=== PATIENT | female | born 1990 | race Two or more races ===

== ENCOUNTER 2019-12-31 05:55 | Day surgery (SDC) | payer BC ==
[~2019-12-31 05:55] MED LIST: PRENATAL TABLE1 EAC1 PO; PRENATE ELITE1 EAC2
[2019-12-31] MEDS ORDERED: ULTRAM50 MG PO (09:17)
[2019-12-31] MEDS ORDERED: TYLENOL ARTHRI650 MG PO (09:17)
[2019-12-31] MEDS ORDERED: NEURONTIN300 MG PO (09:17)
[2019-12-31] MEDS ORDERED: MIRALAX17 GM PO (09:17)
== END 2019-12-31 12:50 | disposition home or self-care (01) ==
LOC: CIR.AMB 05:55
PROVIDERS: ATTEND Surgery
DX: K42.0 Umbilical hernia with obstruction, without gangrene (principal); M62.08 Separation of muscle (nontraumatic), other site; Z20.828 Contact with and (suspected) exposure to other viral communicable diseases